=== PATIENT | male | born 1990 | race Caucasian/White ===

== ENCOUNTER 2016-06-20 02:56 | Emergency (ER) | payer OTHER | END 2016-06-20 04:01 | disposition home or self-care (01) | LOC: ER 02:56 | DX: S60.221A Contusion of right hand, initial encounter (principal); W22.01XA Walked into wall, initial encounter; Y92.019 Unspecified place in single-family (private) house as the place of occurrence of the external cause; F17.210 Nicotine dependence, cigarettes, uncomplicated; Z88.6 Allergy status to analgesic agent | CPT/HCPCS: 73130; 99070; 99283 ==

== ENCOUNTER 2016-08-02 22:55 | Emergency (ER) | payer OTHER | END 2016-08-03 00:05 | disposition home or self-care (01) | LOC: ER 22:55 | DX: S60.221A Contusion of right hand, initial encounter (principal); W22.8XXA Striking against or struck by other objects, initial encounter; Y92.019 Unspecified place in single-family (private) house as the place of occurrence of the external cause; Z88.6 Allergy status to analgesic agent | CPT/HCPCS: 73130; 99283 ==